=== PATIENT | female | born 1935 | race Caucasian/White ===

== ENCOUNTER 2022-01-04 10:26 | Inpatient (IN) | payer MEDICARE ==
[2022-01-04] MEDS ORDERED: Acetaminophen 325 MG TAB PO PRN (12:47)
[2022-01-04] MEDS ORDERED: Senokot S 8.6-50 MG TAB PO PRN (12:47)
[2022-01-04] MEDS ORDERED: Sodium Chloride 0.65% Nasal 44 ML BOT EA NARE PRN (12:51)
[2022-01-04] MEDS ORDERED: Guaifenesin DM 100-10/5 ML UDCUP PO PRN (12:51)
[2022-01-04] MEDS ORDERED: Bisacodyl 5 MG TAB PO PRN (12:51)
[2022-01-04] MEDS ORDERED: Bisacodyl 10 MG SUPP PR PRN (12:51)
[2022-01-04] MEDS ORDERED: Artificial Tear Sol 15 ML BOT EA EYE PRN (12:51)
[2022-01-04] MEDS ORDERED: Ondansetron ODT 4 MG TAB SL PRN (12:51)
[2022-01-04] MEDS ORDERED: Calcium Carbonate 500 MG ChewTAB PO PRN (12:51)
[2022-01-04] MEDS ORDERED: Benzonatate 100 MG CAP PO PRN (12:51)
[2022-01-04] MEDS ORDERED: cefTRIAXone Sodium 1000 mg/10 ml Syringe (PEDI) IVPB SCH (13:00)
[2022-01-04] MEDS: traMADol HCl 50 MG TAB PO PRN (18:03)
[2022-01-04] MEDS: Famotidine 20 MG TAB PO SCH (20:50)
[2022-01-05] MEDS ORDERED: cefTRIAXone\\ROCEPHIN 1 GM in Sodium Chloride 0.9% 100 ML IVPB SCH ×2 (06:00→09:00)
[2022-01-05] MEDS: Famotidine 20 MG TAB PO SCH ×2 (08:35→20:28)
[2022-01-05] MEDS: Enoxaparin Sodium 40 MG/0.4 ML SYRINGE SC SCH (08:36)
[2022-01-05] MEDS: Nitrofurantoin Monohyd/M-Cryst 100 MG CAP PO SCH ×2 (08:36→20:28)
[2022-01-05] MEDS: Polyethylene Glycol 3350 17 GM Packet PO SCH (08:38)
[2022-01-05] MEDS: HYDROcodone/Acetaminophen 5/325 mg Tablet PO PRN (10:16)
[2022-01-05] MEDS: traMADol HCl 50 MG TAB PO PRN (14:59)
[2022-01-06] MEDS: HYDROcodone/Acetaminophen 5/325 mg Tablet PO PRN ×2 (00:23→20:59)
[2022-01-06 05:52] LABS: Hemoglobin 12.8 g/dL (12.0-16.0); Platelet Count 305 thou/uL (130-400)
[2022-01-06] MEDS: traMADol HCl 50 MG TAB PO PRN ×2 (08:20→15:42)
[2022-01-06] MEDS: Famotidine 20 MG TAB PO SCH ×2 (08:21→21:01)
[2022-01-06] MEDS: Nitrofurantoin Monohyd/M-Cryst 100 MG CAP PO SCH ×2 (08:21→21:00)
[2022-01-06] MEDS: Enoxaparin Sodium 40 MG/0.4 ML SYRINGE SC SCH (08:21)
[2022-01-06] MEDS: Polyethylene Glycol 3350 17 GM Packet PO SCH (08:22)
[2022-01-06] MEDS ORDERED: Senokot S 8.6-50 MG TAB PO PRN (10:45)
[2022-01-06] MEDS ORDERED: Lidocaine 5% Patch TD SCH (12:15)
[2022-01-06] MEDS: Melatonin 3 MG TAB PO PRN (21:00)
[2022-01-06] MEDS: Transdermal Patch Removal TOP SCH (21:01)
[2022-01-07] MEDS: HYDROcodone/Acetaminophen 5/325 mg Tablet PO PRN ×3 (02:06→20:45)
[2022-01-07] MEDS: Polyethylene Glycol 3350 17 GM Packet PO SCH (08:15)
[2022-01-07] MEDS: Enoxaparin Sodium 40 MG/0.4 ML SYRINGE SC SCH (08:15)
[2022-01-07] MEDS: Famotidine 20 MG TAB PO SCH ×2 (08:15→20:45)
[2022-01-07] MEDS: Lidocaine 5% Patch TD SCH (08:16)
[2022-01-07] MEDS: Melatonin 3 MG TAB PO PRN (20:45)
[2022-01-07] MEDS: Transdermal Patch Removal TOP SCH (20:51)
[2022-01-08] MEDS: HYDROcodone/Acetaminophen 5/325 mg Tablet PO PRN ×3 (05:35→21:01)
[2022-01-08] MEDS: Enoxaparin Sodium 40 MG/0.4 ML SYRINGE SC SCH (09:11)
[2022-01-08] MEDS: Famotidine 20 MG TAB PO SCH ×2 (09:11→21:02)
[2022-01-08] MEDS: Lidocaine 5% Patch TD SCH (09:12)
[2022-01-08] MEDS: Polyethylene Glycol 3350 17 GM Packet PO SCH (09:12)
[2022-01-08] MEDS: Melatonin 3 MG TAB PO PRN (21:02)
[2022-01-08] MEDS: Transdermal Patch Removal TOP SCH (21:08)
[2022-01-09] MEDS: HYDROcodone/Acetaminophen 5/325 mg Tablet PO PRN ×3 (04:17→18:22)
[2022-01-09 05:48] LABS: Anion Gap 14 mmol/L (10-20); BUN (Urea Nitrogen) 15 mg/dL (9.8-20.1); Calc. Creatinine Clearance 75 mL/min (70-130); Carbon Dioxide 23 mmol/L (23-31); Chloride 107 mmol/L (98-107); Estimated GFR 85; Glucose 112 mg/dL (83-110); Potassium 3.9 mmol/L (3.5-5.1); Sodium 140 mmol/L (136-145)
[2022-01-09 05:49] LABS: Hemoglobin 12.3 g/dL (12.0-16.0); Mean Corpuscular HGB CONC 31.3 g/dL (32.0-36.0); Mean Corpuscular Hemoglobin 28.3 pg (27.0-31.0); Mean Corpuscular Volume 90.4 fL (78.0-98.0); Mean Platelet Volume 7.7 fL (7.4-10.4); Platelet Count 289 thou/uL (130-400); RBC Distribution Width 11.9 % (11.5-14.5); Red Blood Cell (RBC) Count 4.35 mill/uL (4.20-5.40); White Blood Cell (WBC) Count 5.4 thou/uL (4.8-10.8)
[2022-01-09 05:50] LABS: #Basophils 0.1 thou/uL (0.0-0.2); #Eosinphils 0.2 thou/uL (0.0-0.7); #Lymphocytes 1.5 thou/uL (1.20-3.40); #Monocytes 0.5 thou/uL (0.11-0.59); %Lymphocytes 28.5 % (21.0-51.0); %Monocytes 10.1 % (0.0-10.0); %Neutrophils 56.4 % (42.0-75.0)
[2022-01-09] MEDS: Lidocaine 5% Patch TD SCH (08:10)
[2022-01-09] MEDS: Polyethylene Glycol 3350 17 GM Packet PO SCH (08:10)
[2022-01-09] MEDS: Famotidine 20 MG TAB PO SCH ×2 (08:10→21:03)
[2022-01-09] MEDS: Enoxaparin Sodium 40 MG/0.4 ML SYRINGE SC SCH (08:10)
[2022-01-09] MEDS: Latanoprost 0.005% Ophth Soln 2.5 ml Bottle EA EYE SCH (21:03)
[2022-01-09] MEDS: Melatonin 3 MG TAB PO PRN (21:03)
[2022-01-10] MEDS: Transdermal Patch Removal TOP SCH ×2 (02:16→20:49)
[2022-01-10] MEDS: Enoxaparin Sodium 40 MG/0.4 ML SYRINGE SC SCH (07:54)
[2022-01-10] MEDS: Lidocaine 5% Patch TD SCH (07:55)
[2022-01-10] MEDS: Famotidine 20 MG TAB PO SCH ×2 (07:55→20:49)
[2022-01-10] MEDS: Polyethylene Glycol 3350 17 GM Packet PO SCH (07:55)
[2022-01-10] MEDS: HYDROcodone/Acetaminophen 5/325 mg Tablet PO PRN (07:56)
[2022-01-10] MEDS: Latanoprost 0.005% Ophth Soln 2.5 ml Bottle EA EYE SCH (20:49)
[2022-01-11] MEDS: Melatonin 3 MG TAB PO PRN (00:47)
[2022-01-11] MEDS: HYDROcodone/Acetaminophen 5/325 mg Tablet PO PRN (04:34)
[2022-01-11] MEDS: Enoxaparin Sodium 40 MG/0.4 ML SYRINGE SC SCH (08:19)
[2022-01-11] MEDS: traMADol HCl 50 MG TAB PO PRN ×2 (08:19→15:02)
[2022-01-11] MEDS: Famotidine 20 MG TAB PO SCH ×2 (08:19→20:39)
[2022-01-11] MEDS: Lidocaine 5% Patch TD SCH (08:21)
[2022-01-11] MEDS: Polyethylene Glycol 3350 17 GM Packet PO SCH (08:21)
[2022-01-11] MEDS: Latanoprost 0.005% Ophth Soln 2.5 ml Bottle EA EYE SCH (20:37)
[2022-01-11] MEDS: Transdermal Patch Removal TOP SCH (20:40)
[2022-01-12 06:10] LABS: #Basophils 0.1 thou/uL (0.0-0.2); #Eosinphils 0.1 thou/uL (0.0-0.7); #Lymphocytes 1.5 thou/uL (1.20-3.40); #Monocytes 0.4 thou/uL (0.11-0.59); #Neutrophils 3.4 thou/uL (1.40-6.50); %Eosinophils 2.5 % (0.0-10.0); %Lymphocytes 27.1 % (21.0-51.0); %Monocytes 7.7 % (0.0-10.0); %Neutrophils 61.7 % (42.0-75.0); Hemoglobin 11.9 g/dL (12.0-16.0); Mean Corpuscular HGB CONC 31.4 g/dL (32.0-36.0); Mean Corpuscular Hemoglobin 28.2 pg (27.0-31.0); Mean Corpuscular Volume 89.9 fL (78.0-98.0); Mean Platelet Volume 7.1 fL (7.4-10.4); Platelet Count 285 thou/uL (130-400); RBC Distribution Width 11.9 % (11.5-14.5); Red Blood Cell (RBC) Count 4.21 mill/uL (4.20-5.40); White Blood Cell (WBC) Count 5.5 thou/uL (4.8-10.8)
[2022-01-12 06:37] LABS: Anion Gap 13 mmol/L (10-20); BUN (Urea Nitrogen) 11 mg/dL (9.8-20.1); Calc. Creatinine Clearance 81 mL/min (70-130); Calcium 9.7 mg/dL (7.8-10.44); Carbon Dioxide 24 mmol/L (23-31); Chloride 107 mmol/L (98-107); Estimated GFR 86; Glucose 104 mg/dL (83-110); Potassium 3.9 mmol/L (3.5-5.1); Sodium 140 mmol/L (136-145)
[2022-01-12] MEDS: HYDROcodone/Acetaminophen 5/325 mg Tablet PO PRN ×2 (09:24→16:45)
[2022-01-12] MEDS: Enoxaparin Sodium 40 MG/0.4 ML SYRINGE SC SCH (09:26)
[2022-01-12] MEDS: Polyethylene Glycol 3350 17 GM Packet PO SCH (09:26)
[2022-01-12] MEDS: Lidocaine 5% Patch TD SCH (09:26)
[2022-01-12] MEDS: Famotidine 20 MG TAB PO SCH ×2 (09:26→21:09)
[2022-01-12] MEDS: Transdermal Patch Removal TOP SCH (21:09)
[2022-01-12] MEDS: Latanoprost 0.005% Ophth Soln 2.5 ml Bottle EA EYE SCH (21:10)
[2022-01-13] MEDS: Polyethylene Glycol 3350 17 GM Packet PO SCH (08:37)
[2022-01-13] MEDS: Lidocaine 5% Patch TD SCH (08:38)
[2022-01-13] MEDS: Famotidine 20 MG TAB PO SCH ×2 (08:38→21:20)
[2022-01-13] MEDS: HYDROcodone/Acetaminophen 5/325 mg Tablet PO PRN ×2 (08:38→21:21)
[2022-01-13] MEDS: Enoxaparin Sodium 40 MG/0.4 ML SYRINGE SC SCH (08:38)
[2022-01-13] MEDS ORDERED: Polyethylene Glycol 3350 17 GM Packet PO PRN (19:15)
[2022-01-13] MEDS: Melatonin 3 MG TAB PO PRN (21:20)
[2022-01-13] MEDS: Latanoprost 0.005% Ophth Soln 2.5 ml Bottle EA EYE SCH (21:22)
[2022-01-13] MEDS: Transdermal Patch Removal TOP SCH (21:22)
[2022-01-14] MEDS: HYDROcodone/Acetaminophen 5/325 mg Tablet PO PRN ×2 (05:46→11:09)
[2022-01-14] MEDS: Enoxaparin Sodium 40 MG/0.4 ML SYRINGE SC SCH (08:36)
[2022-01-14] MEDS: Famotidine 20 MG TAB PO SCH ×2 (08:36→20:30)
[2022-01-14] MEDS: Lidocaine 5% Patch TD SCH (08:36)
[2022-01-14] MEDS: Latanoprost 0.005% Ophth Soln 2.5 ml Bottle EA EYE SCH (20:30)
[2022-01-14] MEDS: Transdermal Patch Removal TOP SCH (20:30)
[2022-01-14] MEDS: Melatonin 3 MG TAB PO PRN (20:30)
[2022-01-14] MEDS: traMADol HCl 50 MG TAB PO PRN (20:33)
[2022-01-15 05:33] VITALS: BMI 25.5
[2022-01-15 05:54] LABS: #Eosinphils 0.1 thou/uL (0.0-0.7); #Lymphocytes 1.4 thou/uL (1.20-3.40); #Monocytes 0.5 thou/uL (0.11-0.59); #Neutrophils 2.6 thou/uL (1.40-6.50); %Eosinophils 2.2 % (0.0-10.0); %Lymphocytes 30.3 % (21.0-51.0); %Monocytes 9.9 % (0.0-10.0); %Neutrophils 56.6 % (42.0-75.0); Hemoglobin 11.5 g/dL (12.0-16.0); Mean Corpuscular Hemoglobin 28.1 pg (27.0-31.0); Mean Corpuscular Volume 90.7 fL (78.0-98.0); Platelet Count 321 thou/uL (130-400); Red Blood Cell (RBC) Count 4.08 mill/uL (4.20-5.40); White Blood Cell (WBC) Count 4.5 thou/uL (4.8-10.8)
[2022-01-15 06:07] LABS: Anion Gap 12 mmol/L (10-20); BUN (Urea Nitrogen) 14 mg/dL (9.8-20.1); Calc. Creatinine Clearance 76 mL/min (70-130); Calcium 9.5 mg/dL (7.8-10.44); Carbon Dioxide 25 mmol/L (23-31); Chloride 107 mmol/L (98-107); Estimated GFR 85; Glucose 103 mg/dL (83-110); Potassium 3.8 mmol/L (3.5-5.1); Sodium 140 mmol/L (136-145)
[2022-01-15] MEDS: Famotidine 20 MG TAB PO SCH ×2 (08:00→20:58)
[2022-01-15] MEDS: traMADol HCl 50 MG TAB PO PRN ×2 (08:00→20:58)
[2022-01-15] MEDS: Lidocaine 5% Patch TD SCH (08:01)
[2022-01-15] MEDS: Enoxaparin Sodium 40 MG/0.4 ML SYRINGE SC SCH (08:01)
[2022-01-15] MEDS: HYDROcodone/Acetaminophen 5/325 mg Tablet PO PRN (10:37)
[2022-01-15] MEDS: Melatonin 3 MG TAB PO PRN (20:58)
[2022-01-15] MEDS: Latanoprost 0.005% Ophth Soln 2.5 ml Bottle EA EYE SCH (20:58)
[2022-01-15] MEDS: Transdermal Patch Removal TOP SCH (20:59)
[2022-01-16] MEDS: Famotidine 20 MG TAB PO SCH ×2 (07:43→20:22)
[2022-01-16] MEDS: Enoxaparin Sodium 40 MG/0.4 ML SYRINGE SC SCH (07:43)
[2022-01-16] MEDS: Lidocaine 5% Patch TD SCH (07:43)
[2022-01-16] MEDS: HYDROcodone/Acetaminophen 5/325 mg Tablet PO PRN (14:25)
[2022-01-16] MEDS: Melatonin 3 MG TAB PO PRN (20:22)
[2022-01-16] MEDS: Transdermal Patch Removal TOP SCH (20:23)
[2022-01-16] MEDS: Latanoprost 0.005% Ophth Soln 2.5 ml Bottle EA EYE SCH (20:24)
[2022-01-16] MEDS: traMADol HCl 50 MG TAB PO PRN (21:30)
[2022-01-17] MEDS: traMADol HCl 50 MG TAB PO PRN ×2 (06:35→21:01)
[2022-01-17] MEDS: Enoxaparin Sodium 40 MG/0.4 ML SYRINGE SC SCH (08:25)
[2022-01-17] MEDS: Lidocaine 5% Patch TD SCH (08:25)
[2022-01-17] MEDS: Famotidine 20 MG TAB PO SCH ×2 (08:25→21:02)
[2022-01-17] MEDS: Transdermal Patch Removal TOP SCH (21:02)
[2022-01-17] MEDS: Latanoprost 0.005% Ophth Soln 2.5 ml Bottle EA EYE SCH (21:02)
[2022-01-18 05:58] LABS: #Basophils 0.1 thou/uL (0.0-0.2); #Eosinphils 0.1 thou/uL (0.0-0.7); #Lymphocytes 1.3 thou/uL (1.20-3.40); #Monocytes 0.4 thou/uL (0.11-0.59); #Neutrophils 4.1 thou/uL (1.40-6.50); %Basophils 0.9 % (0.0-1.0); %Eosinophils 1.6 % (0.0-10.0); %Lymphocytes 22.5 % (21.0-51.0); Hemoglobin 12.4 g/dL (12.0-16.0); Mean Corpuscular HGB CONC 31.7 g/dL (32.0-36.0); Mean Corpuscular Hemoglobin 28.5 pg (27.0-31.0); Mean Corpuscular Volume 90.1 fL (78.0-98.0); Mean Platelet Volume 7.4 fL (7.4-10.4); Platelet Count 292 thou/uL (130-400); RBC Distribution Width 12.1 % (11.5-14.5); Red Blood Cell (RBC) Count 4.36 mill/uL (4.20-5.40)
[2022-01-18 06:09] LABS: Anion Gap 15 mmol/L (10-20); BUN (Urea Nitrogen) 9 mg/dL (9.8-20.1); Calc. Creatinine Clearance 77 mL/min (70-130); Calcium 9.9 mg/dL (7.8-10.44); Carbon Dioxide 23 mmol/L (23-31); Chloride 107 mmol/L (98-107); Estimated GFR 85; Potassium 4.1 mmol/L (3.5-5.1); Sodium 141 mmol/L (136-145)
[2022-01-18 06:16] LABS: Glucose 95 mg/dL (83-110)
[2022-01-18] MEDS: Enoxaparin Sodium 40 MG/0.4 ML SYRINGE SC SCH (08:06)
[2022-01-18] MEDS: Lidocaine 5% Patch TD SCH (08:06)
[2022-01-18] MEDS: Famotidine 20 MG TAB PO SCH ×2 (08:06→21:02)
[2022-01-18] MEDS: traMADol HCl 50 MG TAB PO PRN ×2 (08:10→21:02)
[2022-01-18] MEDS: Latanoprost 0.005% Ophth Soln 2.5 ml Bottle EA EYE SCH (21:02)
[2022-01-18] MEDS: Melatonin 3 MG TAB PO PRN (21:02)
[2022-01-18] MEDS: Transdermal Patch Removal TOP SCH (21:05)
[2022-01-19] MEDS: Enoxaparin Sodium 40 MG/0.4 ML SYRINGE SC SCH (08:03)
[2022-01-19] MEDS: Lidocaine 5% Patch TD SCH (08:03)
[2022-01-19] MEDS: Famotidine 20 MG TAB PO SCH ×2 (08:07→20:23)
[2022-01-19] MEDS: traMADol HCl 50 MG TAB PO PRN ×2 (08:28→14:02)
[2022-01-19] MEDS: Latanoprost 0.005% Ophth Soln 2.5 ml Bottle EA EYE SCH (20:23)
[2022-01-19] MEDS: Transdermal Patch Removal TOP SCH (20:24)
[2022-01-20] MEDS: traMADol HCl 50 MG TAB PO PRN (07:20)
[2022-01-20] MEDS: Famotidine 20 MG TAB PO SCH (07:20)
[2022-01-20] MEDS: Enoxaparin Sodium 40 MG/0.4 ML SYRINGE SC SCH (07:21)
[2022-01-20] MEDS: Lidocaine 5% Patch TD SCH (07:21)
[2022-01-20 07:32] VITALS: BP 139/69; TEMP 98.3
== END 2022-01-20 13:00 | DRG 560 ==
LOC: NAV ACUTE 12:30
PROVIDERS: ADMIT Family Medicine; ATTEND Family Medicine
DX: S32.10XD Unspecified fracture of sacrum, subsequent encounter for fracture with routine healing (principal); N39.0 Urinary tract infection, site not specified; Z60.2 Problems related to living alone; Z66 Do not resuscitate; Z20.822 Contact with and (suspected) exposure to COVID-19; K59.00 Constipation, unspecified; G47.00 Insomnia, unspecified; M79.18 Myalgia, other site; R53.81 Other malaise; W18.30XD Fall on same level, unspecified, subsequent encounter; Z79.899 Other long term (current) drug therapy; Z90.49 Acquired absence of other specified parts of digestive tract; Z87.891 Personal history of nicotine dependence
CPT/HCPCS: 36415; 80048; 82565; 85014; 85018; 85025; 85049; 87811; J1650; U0003; U0005